=== PATIENT | female | born 1960 ===

== ENCOUNTER 2018-06-08 11:18 | Emergency (ER) | payer SELFPAY ==
[2018-06-08 11:24] VITALS: TEMP 97.7
--- NOTE | 2018-06-08 12:16 | C.PDOC ---
History Of Present Illness 58 y/o female presents to ED complaining of an itchy rash that started on her left arm and is now on her neck, chest, abdomen, arms, and legs since several days ago. Patient states she has been using moisturizer and calamine lotion, which she says has worsened the rash. Otherwise she denies any lip or tongue swelling, sensation of throat closing up, unusual food intake, or new allergens. Time Seen by Provider: 06/08/18 11:34 Chief Complaint (Nursing): Allergic Reaction History Per: Patient History/Exam Limitations: no limitations Onset/Duration Of Symptoms: Days Current Symptoms Are (Timing): Still Present Past Medical History Reviewed: Historical Data, Nursing Documentation, Vital Signs Vital Signs: Last Vital Signs Temp 97.7 F 06/08/18 11:21 Pulse 114 H 06/08/18 11:21 Resp 18 06/08/18 11:21 BP 157/98 H 06/08/18 11:21 Pulse Ox 99 06/08/18 11:21 Family History: States: No Known Family Hx - Social History Hx Alcohol Use: No Hx Substance Use: No Review Of Systems Constitutional: Negative for: Fever ENT: Negative for: Mouth Swelling, Throat Pain, Throat Swelling Respiratory: Negative for: Shortness of Breath Skin: Positive for: Rash (on neck, chest, abdomen, arms, and legs) Physical Exam - Physical Exam Appears: Non-toxic, No Acute Distress Skin: Pale, Rash (diffused maculopapular rash on arms, posterior neck, chest, and back; nonvesicular sparing the palms and soles) Head: Atraumatic, Normacephalic Eye(s): bilateral: Normal Inspection Ear(s): Bilateral: Normal Oral Mucosa: Moist Tongue: No Swelling Lips: No Swelling Throat: Normal, No Erythema, No Exudate, Other (Airway is patent, uvula midline) Chest: Symmetrical Cardiovascular: Rhythm Regular, No Murmur Respiratory: Normal Breath Sounds, No Rales, No Rhonchi, No Wheezing Gastrointestinal/Abdominal: Soft, No Tenderness Extremity: Bilateral: Normal ROM Neurological/Psych: Oriented x3, Normal Speech ED Course And Treatment O2 Sat by Pulse Oximetry: 99 (RA) Pulse Ox Interpretation: Normal Progress Note: Prednisone and benadryl administered. Patient will be discharged home and was instructed to follow up with PMD in 1-2 days. Disposition Counseled Patient/Family Regarding: Diagnosis, Need For Followup, Rx Given - Disposition Referrals: [facility] [Outside] Disposition: HOME/ ROUTINE Disposition Time: 12:20 Condition: STABLE Additional Instructions: FOLLOW UP WITH YOUR DOCTOR/CLINIC IN 1-2 DAYS USE MEDICATIONS DIRECTED RETURN TO EMERGENCY ROOM IF YOUR SYMPTOMS BECOME WORSE SEGUIR CON CEDILLO MDICO / CLNICA EN 1-2 AMBRIZ UTILICE MEDICAMENTOS ELVIRA SE DIRIGE VUELVA A LA OMAR DE EMERGENCIA SI OMARI SNTOMAS SE HACEN PEOR Prescriptions: DiphenhydrAMINE [Benadryl] 25 mg PO Q6 PRN #20 cap PRN Reason: Itching / Pruritus predniSONE [predniSONE Tab] 40 mg PO DAILY #8 tab Instructions: Skin Rash (DC) Forms: [employer] (Yi) Print Language: JAPANESE - Clinical Impression Clinical Impression: Rash due to allergy - Scribe Statement The provider has reviewed the documentation as recorded by the Marley Callejas Provider Attestation: All medical record entries made by the Marley were at my direction and personally dictated by me. I have reviewed the chart and agree that the record accurately reflects my personal performance of the history, physical exam, medical decision making, and the department course for this patient. I have also personally directed, reviewed, and agree with the discharge instructions and disposition.
[2018-06-08 12:34] VITALS: BP 145/86; PULSE 94; RESP 16
[2018-06-08 15:24] VITALS: O2SAT 99
== END 2018-06-08 12:34 | disposition home or self-care (01) ==
LOC: C.ER 11:18
DX: R21 Rash and other nonspecific skin eruption (principal)

== ENCOUNTER 2018-07-01 20:52 | Emergency (ER) | payer SELFPAY ==
[2018-07-01] MEDS ORDERED: DiphenhydrAMINE 50 mg/ml Inj IVP STA (21:23)
[2018-07-01] MEDS ORDERED: Sodium Chloride 0.9% 1,000 ML IV ONE (21:23)
--- NOTE | 2018-07-01 21:23 | C.PDOC ---
History Of Present Illness 58 year old female presents to the ED c/o diffuse urticarial rash with unknown etiology. Patient reports having similar episodes at the end of April. Patient able to speak in complete sentences. Patient denies fever, chills, facial swelling, tongue swelling, lip swelling, SOB, wheezing. Time Seen by Provider: 07/01/18 21:21 Chief Complaint (Nursing): Allergic Reaction History Per: Patient History/Exam Limitations: no limitations Onset/Duration Of Symptoms: Hrs Current Symptoms Are (Timing): Still Present Possible Cause: Unknown Associated Symptoms: Skin Rash Recent travel outside of the [place]: No Additional History Per: Patient Past Medical History Reviewed: Historical Data, Nursing Documentation, Vital Signs Vital Signs: Last Vital Signs Temp 97.7 F 07/01/18 20:59 Pulse 103 H 07/01/18 20:59 Resp 20 07/01/18 20:59 BP 144/92 H 07/01/18 20:59 Pulse Ox 100 07/01/18 20:59 - Medical History PMH: No Chronic Diseases Surgical History: No Surg Hx Family History: States: Unknown Family Hx - Social History Hx Alcohol Use: No Hx Substance Use: No Review Of Systems Constitutional: Negative for: Fever, Chills ENT: Negative for: Mouth Swelling, Throat Swelling Respiratory: Negative for: Cough, Shortness of Breath, Wheezing Gastrointestinal: Negative for: Nausea, Vomiting, Abdominal Pain Skin: Positive for: Rash Neurological: Negative for: Weakness, Numbness Physical Exam - Physical Exam Appears: Non-toxic, No Acute Distress Skin: Warm, Dry, Rash (diffuse urticarial rash) Head: Normacephalic Eye(s): bilateral: Normal Inspection Oral Mucosa: Moist Tongue: No Swelling Lips: No Swelling Throat: No Erythema, No Exudate, No Drooling Neck: Supple Chest: Symmetrical Cardiovascular: Rhythm Regular Respiratory: No Rales, No Rhonchi, No Wheezing Gastrointestinal/Abdominal: Soft, No Tenderness, No Guarding, No Rebound Extremity: Bilateral: Atraumatic, Normal Color And Temperature, Normal ROM Neurological/Psych: Oriented x3, Normal Speech, Normal Cognition Gait: Steady ED Course And Treatment O2 Sat by Pulse Oximetry: 100 (ON RA) Pulse Ox Interpretation: Normal Progress Note: Plan: - benadryl 25 mg IVP. - pepcid 20 mg IVP. - solumedrol 125 mg IVP. - IV fluids Reevaluation Time: 00:44 Reassessment Condition: Improved Disposition Counseled Patient/Family Regarding: Studies Performed, Diagnosis, Need For Followup, Rx Given - Disposition Referrals: [facility] [Outside] [facility] [Outside] Disposition: HOME/ ROUTINE Disposition Time: 21:23 Condition: FAIR Additional Instructions: Por favor regrese si los sntomas recurren. Tambin use benadryl, pepcid y claritin Prescriptions: Epinephrine [Epipen] 0.3 mg IJ ONCE PRN #2 auto.injct PRN Reason: Anaphylaxis Prednisone 50 mg PO DAILY #5 tablet Instructions: Hives (DC) Forms: [employer] (Vietnamese) Print Language: AMHARIC - Clinical Impression Clinical Impression: Allergic urticaria - Scribe Statement The provider has reviewed the documentation as recorded by the Scribe Marko Orellana All medical record entries made by the Scribe were at my direction and personally dictated by me. I have reviewed the chart and agree that the record accurately reflects my personal performance of the history, physical exam, medical decision making, and the department course for this patient. I have also personally directed, reviewed, and agree with the discharge instructions and disposition.
[2018-07-01] MEDS ORDERED: DiphenhydrAMINE 50 mg/ml Inj ONE (21:34)
[2018-07-01] MEDS ORDERED: Sodium Chloride 0.9% 1,000 ML ONE (21:35)
[2018-07-02 01:06] VITALS: BP 111/67; PULSE 80; RESP 14; TEMP 98.4; O2SAT 98
== END 2018-07-02 01:11 | disposition home or self-care (01) ==
LOC: C.ER 20:52
DX: L50.0 Allergic urticaria (principal)
CPT/HCPCS: 96374; 96375; 99284; J1200; J2930; J7030